=== PATIENT | male | born 1955 | race Caucasian/White ===

== ENCOUNTER 2019-08-18 10:10 | Emergency (ER) | payer BC ==
--- OUTSIDE RECORDS SUMMARY | 2019-08-18 10:17 | XMS REPORT | Summary of Care ---
:1955 Author Organization [facility] Address [address] [place] [address] Care Team Providers Name Role Phone Pura Arreola MD Primary Care Provider Reason for Visit Reason Comments Follow-up anitphospholipid antibody positive Encounter Details Date Type Department Care Team Description 07/26/2019 Office Visit Jac Farfan MD Antiphospholipid antibody positive (Primary Dx); Rheumatology and [address] Raynaud's phenomenon without gangrene; [facility] Chronic bilateral low back pain without sciatica; [place] [address] Spinal stenosis of lumbar region without neurogenic claudication; [address] [phone] History of lung cancer [address] [place] [address] Allergies Active Allergy Reactions Severity Noted Date Comments Duloxetine Hcl 12/13/2011 Nose bleeds Penicillins Shortness Of Breath High 12/13/2011 Chest tightness Sulfa Antibiotics Nausea And Vomiting 12/13/2011 Adhesive Tape Rash Low 07/31/2018 documented as of this encounter (statuses as of 08/04/2019) Medications Medication Sig Dispensed Refills Start End Status Date Date simvastatin (ZOCOR) 40 Take 40 mg by 0 Active MG tablet mouth nightly. esomeprazole (NEXIUM) Take 40 mg by 0 Active 40 MG capsule mouth every morning before breakfast. calcium-vitamin D Take 1 tablet 0 Active (OSCAL-500) 500-200 by mouth 2 MG-UNIT per tablet (two) times daily. desoximetasone Apply 0.25 % 0 Active (TOPICORT) 0.25 % topically as cream needed. losartan (COZAAR) 100 Take 100 mg 0 Active MG tablet by mouth daily. nitroGLYCERIN Place 0.4 mg 0 Active (NITROSTAT) 0.4 MG SL under the tablet tongue every 5 (five) minutes as needed for Chest pain. metoprolol (LOPRESSOR) Take 25 mg by 0 Active 25 MG tablet mouth daily. aspirin 81 MG tablet Take 81 mg by 0 Active mouth daily celecoxib (CELEBREX) 0 Active 200 MG capsule 8 benzonatate (TESSALON) 3 Active 200 MG capsule 9 tamsulosin (FLOMAX) TAKE 1 1 Active 0.4 MG capsule CAPSULE BY 9 MOUTH IN THE EVENING 1 2 HOUR AFTER MEAL Isosorbide Mononitrate Take 1 tablet 90 tablet 1 Active ER 60 MG Oral Tablet by mouth 0 Extended Release 24 daily Hour (IMDUR)Indications: Antiphospholipid antibody positive Hydroxychloroquine Take 1 tablet 180 tablet 1 Active Sulfate 200 MG Oral by mouth Two 0 Tablet Times Daily (PLAQUENIL)Indications : Antiphospholipid antibody positive isosorbide mononitrate Take 1 tablet 90 tablet 1 Discontinued (IMDUR) 60 MG 24 hr by mouth 9 020 (Reorder) tabletIndications: daily Antiphospholipid antibody positive Hydroxychloroquine TAKE 1 TABLET 180 tablet 1 Discontinued Sulfate 200 MG Oral TWICE A DAY 9 020 (Reorder) Tablet (PLAQUENIL)Indications : Antiphospholipid antibody positive documented as of this encounter (statuses as of 08/04/2019) Active Problems Problem Noted Date History of lung cancer 05/07/2018 Spinal stenosis of lumbar region 09/21/2016 Overview: Status post lumbar fusion L2-3 per patient Lung cancer 09/21/2016 Raynaud phenomenon 12/13/2011 Antiphospholipid antibody positive 12/13/2011 Hypertension 12/13/2011 Low back pain 12/13/2011 documented as of this encounter (statuses as of 08/04/2019) Social History Tobacco Use Types Packs/Day Years Used Date Never Smoker Smokeless Tobacco: Never Used Alcohol Use Drinks/Week oz/Week Comments Yes occasional Sex Assigned at Date Recorded Not on file Job Start Date Occupation Industry Not on file Not on file Not on file Travel History Travel Start Travel End No recent travel history available. documented as of this encounter Last Filed Vital Signs Vital Sign Reading Time Taken Comments Blood Pressure 137/70 07/26/2019 12:18 PM EST Pulse 48 07/26/2019 12:18 PM EST Temperature 35.7 07/26/2019 12:18 PM EST C (96.3 F) Respiratory Rate - - Oxygen Saturation 98% 07/26/2019 12:18 PM EST Inhaled Oxygen Concentration - - Weight 85.1 kg (187 lb 9.6 oz) 07/26/2019 12:18 PM EST Height 172.7 cm (5' 7.99") 07/26/2019 12:18 PM EST Body Mass Index 28.53 07/26/2019 12:18 PM EST documented in this encounter Patient Instructions Patient InstructionsLeanna Knight NP - 07/26/2019 12:30 PM ESTReturn in 6 months for follow up with Dr. Randi Marrero refill of Imdur will be sent to your pharmacy Continue aspirin 81 mg daily, Plaquenil 200 mg twice daily and Imdur 60 mg daily documented in this encounter Progress Notes Leanna Knight NP - 07/26/2019 12:30 PM EST REASON FOR VISIT: Followup for antiphospholipid antibody syndrome, Raynaud phenomenon HISTORY OF PRESENT ILLNESS: Marcell Martins is a 63 y.o. male who is followed in our office for followup visit. 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 Patient also has a history of lung cancer,which was detected early and it has been stable after the surgical resection. He has chronic low back pain with history of surgery. INTERVAL HISTORY: The patient is seen today in follow-up. His last visit was . He continues on aspirin 81 mg daily, hydroxychloroquine 200 mg po bid . He has eye exams every 6 months. Hisnext exam is scheduled for 08/15/[address] Johnson. He continues with chronic low back pain. He uses CPAP for sleep apnea. He reports cold hands. He denies any recent infections. He is generally feeling well. He reports cold hands. 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 He is following with a urologist in [place] for weak bladder. He also continues to follow with his vertica architect for coronary artery disease and hypertension. Past Medical History: Diagnosis Date Arthritis Benign prostatic hypertrophy Coronary artery disease GERD (gastroesophageal reflux disease) Hypersomnia with sleep apnea, unspecified Hypertension Low back pain Other and unspecified hyperlipidemia Other diseases of lung, not elsewhere classified Raynaud disease Shingles 2010 Spinal stenosis Vitamin D deficiency Past Surgical History: Procedure Laterality Date APPENDECTOMY 2009 CARPAL TUNNEL RELEASE Bilateral Dr Ospina CHOLECYSTECTOMY 2004 COLONOSCOPY 2010 CORONARY ANGIOPLASTY WITH STENT PLACEMENT 3 tents SPINE SURGERY 2005, 10/2011 spinal fusion SPINE SURGERY 07/2016 lumbar VASECTOMY 1982 Current Outpatient Medications on File Prior to Visit Medication Sig Dispense Refill aspirin 81 MG tablet Take 81 mg by mouth daily benzonatate (TESSALON) 200 MG capsule 3 desoximetasone (TOPICORT) 0.25 % cream Apply 0.25 % topically as needed. esomeprazole (NEXIUM) 40 MG capsule Take 40 mg by mouth every morning before breakfast. losartan (COZAAR) 100 MG tablet Take 100 mg by mouth daily. metoprolol (LOPRESSOR) 25 MG tablet Take 25 mg by mouth daily. nitroGLYCERIN (NITROSTAT) 0.[address] 0.4 mg under the tongue every 5 (five) minutes as needed for Chest pain. simvastatin (ZOCOR) 40 MG tablet Take 40 mg by mouth nightly. tamsulosin (FLOMAX) 0.4 MG capsule TAKE 1 CAPSULE BY MOUTH IN THE EVENING 1 2 HOUR AFTER MEAL 1 calcium-vitamin D (OSCAL-500) 500-200 MG-UNIT per tablet Take 1 tablet by mouth 2 (two) timesdaily. celecoxib (CELEBREX) 200 MG capsule Allergies Allergen Reactions Penicillins Shortness Of Breath Chest tightness Cymbalta [Duloxetine Hcl] Nose bleeds Sulfa Antibiotics Nausea And Vomiting Tape [Adhesive Tape] Rash Review of Systems Constitutional: Denies fever, chills or night sweats; Generally feeling well. HENT: Negative. Eyes: Follows with eye doctor q 6 months. Respiratory: Sleep apnea; CPAP Cardiovascular: Follows with vertica architect Gastrointestinal: Negative. Genitourinary: Followed by urology for weak bladder Musculoskeletal: Chronic low back pain Skin: Negative. Neurological: Radiculopathy related to chronic low back pain Endo/Heme/Allergies: Negative. Psychiatric/Behavioral: Negative. Visit Vitals BP 137/70 Pulse (!) 48 Temp 35.7 C (96.3 F) (Tympanic) Ht 1.727 m (5' 7.99") Wt 85.1 kg (187 lb 9.6 oz) SpO2 98% BMI 28.53 kg/m Physical Exam Constitutional: He is oriented to person, place, and time and well-developed, well-nourished, and inno distress. HENT: Head: Normocephalic and atraumatic. Eyes: Conjunctivae are normal. Right eye exhibits no discharge. Left eye exhibits no discharge. No scleral icterus. Neck: Neck supple. No JVD present. No tracheal deviation present. No thyromegaly present. Cardiovascular: Regular rhythm. [place], rate 48 Pulmonary/Chest: Effort normal and breath sounds normal. Abdominal: Soft. There is no abdominal tenderness. Musculoskeletal: General: No edema. Comments: Cold hands, no swelling or tenderness. Lymphadenopathy: He has no cervical adenopathy. Neurological: He is alert and oriented to person, place, and time. Gait normal. Psychiatric: Mood, memory, affect and judgment normal. LABORATORY DATA: Labs are reviewed. Office Visit on 07/26/2019 Component Date Value Ref Range Status Albumin 07/26/2019 4.4 3.5 - 5.2 g/dL Final Bilirubin, Total 07/26/2019 0.9 <1.2 mg/dL Final Calcium 07/26/2019 8.9 8.8 - 10.2 mg/dL Final Chloride 07/26/2019 106 98 - 107 mmol/L Final Creatinine 07/26/2019 1.28* 0.70 - 1.20 mg/dL Final Glucose 07/26/2019 98 70 - 140 mg/dL Final Alkaline Phosphatase 07/26/2019 61 40 - 129 U/L Final Potassium 07/26/2019 4.7 3.4 - 5.1 mmol/L Final Total Protein 07/26/2019 6.5 6.4 - 8.3 g/dL Final Sodium 07/26/2019 145 136 - 145 mmol/L Final AST/SGO 07/26/2019 29 <40 U/L Final Blood Urea Nitrogen 07/26/2019 9 8 - 23 mg/dL Final Osmolality, Gil 07/26/2019 298 275 - 300 mosm/kg Final BUN/Cre Ratio 07/26/2019 7 Final Bicarbonate 07/26/2019 25 22 - 29 mmol/L Final ALT/SGP 07/26/2019 31 <41 U/L Final Anion Gap 07/26/2019 14 8 - 15 mmol/L Final A/G Ratio 07/26/2019 2.1 Final GFR Non 2008 CDK-* 07/26/2019 57* >60 mL/min/1.73m2 Final GFR 2008 CKD-EPI 07/26/2019 66 >60 mL/min/1.73m2 Final Homogeneous Pattern 07/26/2019 <80 <80 / Final Speckled Pattern 07/26/2019 <80 <80 1/dil Final Peripheral Pattern 07/26/2019 <80 <80 1/dil Final KARLA,Nucleolar pattern 07/26/2019 <80 <80 / Final Sed Rate - ESR 07/26/2019 5 <20 mm/hr Final White Blood Cell 07/26/2019 5.8 4 - 10 10*3/uL Final Red Blood Cell 07/26/2019 4.34* 4.6 - 6.1 10*6/uL Final Hemoglobin 07/26/2019 13.7 13.5 - 18 g/dL Final Hematocrit 07/26/2019 40.2* 41 - 53 % Final Mean Cell Volume 07/26/2019 92.7 80 - 96 fL Final Mean Cell Hemoglobin 07/26/2019 31.5 27 - 33 pg Final Mean Cell Hgb Conc 07/26/2019 34.0 32.0 - 36.0 g/dL Final Red Cell Dist Width 07/26/2019 13.5 11.5 - 14.5 % Final Platelet Count 07/26/2019 215 150 - 400 10*3/uL Final Differential Type 07/26/2019 Automated Diff Final Neutrophil 07/26/2019 59 % Final Lymphocyte 07/26/2019 32 % Final Monocyte 07/26/2019 7 % Final Eosinophil 07/26/2019 2 % Final Basophil 07/26/2019 0 % Final Abs Neutrophil 07/26/2019 3.40 1.8 - 7.0 10*3/uL Final Abs Lymphocyte 07/26/2019 1.80 1.2 - 4.0 10*3/uL Final Abs Monocyte 07/26/2019 0.40 0 - 0.8 10*3/uL Final Abs Eosinophil 07/26/2019 0.10 0 - 0.5 10*3/uL Final Abs Basophil 07/26/2019 0.00 0 - 0.2 10*3/uL Final ASSESSMENT AND RECOMMENDATIONS: 1. Antiphospholipid antibody positive 2. Raynaud's phenomenon without gangrene Marcell was seen today for follow-up. He is clinically stable. Labs ordered today remain stable; KARLA is negative and ESR is 5. Will continue with current medications including hydroxychloroquine 200mg bid, Aspirin 81 mg daily and isosorbide 60 mg daily. He will return in 6 months and follow with his eye doctor and other providers as scheduled. Diagnoses and all orders for this visit: Antiphospholipid antibody positive Raynaud's phenomenon without gangrene - Isosorbide Mononitrate ER 60 MG Oral Tablet Extended Release 24 Hour ( IMDUR); Take 1 tablet bymouth daily - Hydroxychloroquine Sulfate 200 MG Oral Tablet (PLAQUENIL); Take 1 tablet by mouth Two Times Daily - Comprehensive Metabolic Panel - KARLA - Sedimentation rate, automated - CBC and differential The patient agrees with the above plan. The patient was discussed with and seen by Dr. Jac Bryan Certain parts of this note may have been carried over from prior Rheumatology and [facility] notes to maintain accuracy of patient's pertinent medical history and continuity of care. The details were verified and edited as appropriate. Attending Note: I saw and evaluated the patient with the physician electronic calibration technician. I have reviewed the notes, assessments, and/or procedures performed by [employer], Leanna Knight. I concur with her documentation of the patient. I reviewed the labs from this visit. Results for orders placed or performed in visit on 07/26/19 Comprehensive Metabolic Panel Result Value Ref Range Albumin 4.4 3.5 - 5.2 g/dL Bilirubin, Total 0.9 <1.2 mg/dL Calcium 8.9 8.8 - 10.2 mg/dL Chloride 106 98 - 107 mmol/L Creatinine 1.28 (H) 0.70 - 1.20 mg/dL Glucose 98 70 - 140 mg/dL Alkaline Phosphatase 61 40 - 129 U/L Potassium 4.7 3.4 - 5.1 mmol/L Total Protein 6.5 6.4 - 8.3 g/dL Sodium 145 136 - 145 mmol/L AST/SGO 29 <40 U/L Blood Urea Nitrogen 9 8 - 23 mg/dL Osmolality, Gil 298 275 - 300 mosm/kg BUN/Cre Ratio 7 Bicarbonate 25 22 - 29 mmol/L ALT/SGP 31 <41 U/L Anion Gap 14 8 - 15 mmol/L A/G Ratio 2.1 GFR Non 2008 CDK-EPI 57 (L) >60 mL/min/1.73m2 GFR 2008 CKD-EPI 66 >60 mL/min/1.73m2 KARLA Result Value Ref Range Homogeneous Pattern <80 <80 / Speckled Pattern <80 <80 1/dil Peripheral Pattern <80 <80 1/dil KARLA,Nucleolar pattern <80 <80 / Sedimentation rate, automated Result Value Ref Range Sed Rate - ESR 5 <20 mm/hr CBC and differential Result Value Ref Range White Blood Cell 5.8 4 - 10 10*3/uL Red Blood Cell 4.34 (L) 4.6 - 6.1 10*6/uL Hemoglobin 13.7 13.5 - 18 g/dL Hematocrit 40.2 (L) 41 - 53 % Mean Cell Volume 92.7 80 - 96 fL Mean Cell Hemoglobin 31.5 27 - 33 pg Mean Cell Hgb Conc 34.0 32.0 - 36.0 g/dL Red Cell Dist Width 13.5 11.5 - 14.5 % Platelet Count 215 150 - 400 10*3/uL Differential Type Automated Diff Neutrophil 59 % Lymphocyte 32 % Monocyte 7 % Eosinophil 2 % Basophil 0 % Abs Neutrophil 3.40 1.8 - 7.0 10*3/uL Abs Lymphocyte 1.80 1.2 - 4.0 10*3/uL Abs Monocyte 0.40 0 - 0.8 10*3/uL Abs Eosinophil 0.10 0 - 0.5 10*3/uL Abs Basophil 0.00 0 - 0.2 10*3/uL Mild creatinine elevation documented in this encounter Plan of Treatment Date Type Specialty Care Team Description 08/06/2019 Office Visit Pain Medicine 01/24/2020 Office Visit Rheumatology Jac Bryan MD [address] [place] [phone] Health Maintenance Due Date Last Done Comments Hepatitis C Screening (B. 1955 [id number]) Colon Cancer Screening 10 yrs 01/01/2004 DTaP,Tdap,and Td Vaccines (2 09/14/2012 08/17/2012 - Td) MMR Vaccines (1 of 1 - 04/27/2016 Standard series) Varicella Vaccines (1 of 2 - 07/28/2018 06/02/2018, 2-dose childhood series) 03/30/2016 Zoster Vaccines (3 of 3) 07/28/2018 06/02/2018, 03/30/2016 Pneumococcal Vaccine: 65+ 2018 Years (1 of 2 - PCV13) Influenza Vaccine 03/26/2019 HIB Vaccines Aged Out No longer eligible based on patient's age to complete this topic Hepatitis A Vaccines Aged Out No longer eligible based on patient's age to complete this topic Hepatitis B Vaccines Aged Out No longer eligible based on patient's age to complete this topic IPV Vaccines Aged Out No longer eligible based on patient's age to complete this topic Pneumococcal Vaccine: Aged Out No longer eligible based Pediatrics (0 to 5 Years) and on patient's age to At-Risk Patients (6 to 64 complete this topic Years) documented as of this encounter Procedures Procedure Name Priority Date/Time Associated Diagnosis Comments SEDIMENTATION RATE, Routine 07/26/2019 1:02 Antiphospholipid Results for this AUTOMATED PM EST antibody positive procedure are in Raynaud's phenomenon the results without gangrene section. CBC AND DIFFERENTIAL STAT 07/26/2019 1:02 Antiphospholipid Results for this PM EST antibody positive procedure are in Raynaud's phenomenon the results without gangrene section. KARLA Routine 07/26/2019 1:02 Antiphospholipid Results for this PM EST antibody positive procedure are in Raynaud's phenomenon the results without gangrene section. COMPREHENSIVE Routine 07/26/2019 1:02 Antiphospholipid Results for this METABOLIC PANEL PM EST antibody positive procedure are in Raynaud's phenomenon the results without gangrene section. documented in this encounter Results Comprehensive Metabolic Panel (07/26/2019 1:02 PM EST) Pathologist [facility] Albumin 4.4 3.5 - 5.2 g/dL [facility] Bilirubin, Total 0.9 <1.2 mg/dL [facility] Calcium 8.9 8.8 - 10.2 [facility] mg/dL [facility] Chloride 106 98 - 107 mmol/L [facility] Creatinine 1.28 (H) 0.70 - 1.20 [facility] mg/dL [facility] Glucose 98 70 - 140 mg/dL [facility] Alkaline Phosphatase 61 40 - 129 U/L [facility] Potassium 4.7 3.4 - 5.1 [facility] mmol/L [facility] Total Protein 6.5 6.4 - 8.3 g/dL [facility] Sodium 145 136 - 145 [facility] mmol/L [facility] AST/SGO 29 <40 U/L [facility] Blood Urea Nitrogen 9 8 - 23 mg/dL [facility] Osmolality, Gil 298 275 - 300 [facility] mosm/kg [facility] BUN/Cre Ratio 7 [facility] Bicarbonate 25 22 - 29 mmol/L [facility] ALT/SGP 31 <41 U/L [facility] Anion Gap 14 8 - 15 mmol/L [facility] A/G Ratio 2.1 [facility] GFR Non 57 (L) >60 [facility] Cameroonian 2009 CDK-EPI mL/min/1.73m2 [facility] GFR 66 >60 [facility] 2009 CKD-EPI mL/min/1.73m2 [facility] Pathology Specimen Plasma Performing Organization Address City/State/Zipcode Phone Number [facility] [address] [place] [address] [phone] [facility] [address] [place] [address] Pathology KARLA (07/26/2019 1:02 PM EST) Pathologist [facility] Homogeneous Pattern <80 <80 /{dilution} [facility] Speckled Pattern <80 <80 1/dil [facility] Peripheral Pattern <80 <80 1/dil [facility] KARLA,Nucleolar pattern <80 <80 /{dilution} [facility] Specimen Serum Performing Organization Address [facility] Phone Number [facility] [address] [place] [address] [facility] [address] [place] [address] Pathology Sedimentation rate, automated (07/26/2019 1:02 PM EST) Pathologist [facility] Sed Rate - ESR 5 <20 mm/hr [facility] Pathology Specimen EDTA Whole Blood Performing Organization Address [facility] Phone Number [facility] [address] [place] [address] [phone] [address] Pathology CBC and differential (07/26/2019 1:02 PM EST) [facility] White Blood Cell 5.8 4 - 10 [place] 10*3/uL Pathology Laboratory Red Blood Cell 4.34 (L) 4.6 - 6.1 [place] 10*6/uL Pathology Laboratory Hemoglobin 13.7 13.5 - 18 [facility] g/dL Pathology Laboratory Hematocrit 40.2 (L) 41 - 53 % [place] [facility] Mean Cell Volume 92.7 80 - 96 fL [place] [facility] Mean Cell Hemoglobin 31.5 27 - 33 pg [place] [facility] Mean Cell Hgb Conc 34.0 32.0 - 36.0 [place] g/dL Pathology Laboratory Red Cell Dist Width 13.5 11.5 - 14.5 % [place] [facility] Platelet Count 215 150 - 400 [place] 10*3/uL Pathology Laboratory Differential Type Automated Diff [place] [facility] Neutrophil 59 % [place] [facility] Lymphocyte 32 % [place] [facility] Monocyte 7 % [place] [facility] Eosinophil 2 % [place] [facility] Basophil 0 % [place] [facility] Abs Neutrophil 3.40 1.8 - 7.0 [place] 10*3/uL Pathology Laboratory Abs Lymphocyte 1.80 1.2 - 4.0 [place] 10*3/uL Pathology Laboratory Abs Monocyte 0.40 0 - 0.8 [place] 10*3/uL Pathology Laboratory Abs Eosinophil 0.10 0 - 0.5 [place] 10*3/uL Pathology Laboratory Abs Basophil 0.00 0 - 0.2 [place] 10*3/uL Pathology Laboratory Specimen EDTA Whole Blood Performing Organization Address City/State/Zipcode Phone Number [facility] [address] [place] [address] [address] [place], [address] [place] [facility] [address] [place] [address] Laboratory 402 documented in this encounter Visit Diagnoses Diagnosis Antiphospholipid antibody positive - Primary Other and unspecified nonspecific immunological findings Raynaud's phenomenon without gangrene Chronic bilateral low back pain without sciatica Spinal stenosis of lumbar region without neurogenic claudication Spinal stenosis, lumbar region, without neurogenic claudication History of lung cancer Personal history of malignant neoplasm of bronchus and lung documented in this encounter
--- OUTSIDE RECORDS SUMMARY | 2019-08-18 10:17 | XMS REPORT | Summary of Care ---
:1955 Author Organization [facility] Address [address] [place] [address] Care Team Providers Name Role Phone Pura Arreola MD Primary Care Provider Reason for Referral Pain Medicine (Routine) Status Reason Specialty Diagnoses / Referred By Referred To Procedures Contact Contact Pending Insurance Pain Medicine Diagnoses Other chronic pain Ofelia, Alana Wilkins MD [address] [place] [address] Email: [email or web address] Scheduling Instructions Get Authorization for orders: Yes No Make Appointment for procedure: Yes No Reason for Visit Reason Comments Back Pain low back Leg Pain left leg Encounter Details Date Type Department Care Team Description 08/06/2019 Office Visit Radha Soto Other chronic pain Pain Medicine at [facility] MD Franco (Primary Dx) and [facility] [place] [address] [address] [place], [place] [phone] Allergies Active Allergy Reactions Severity Noted Date Comments Duloxetine Hcl 12/13/2011 Nose bleeds Penicillins Shortness Of Breath High 12/13/2011 Chest tightness Sulfa Antibiotics Nausea And Vomiting 12/13/2011 Adhesive Tape Rash Low 07/31/2018 documented as of this encounter (statuses as of 08/08/2019) Medications Medication Sig Dispensed Refills Start Date End Date Status simvastatin (ZOCOR) 40 Take 40 mg by 0 Active MG tablet mouth nightly. esomeprazole (NEXIUM) 40 Take 40 mg by 0 Active MG capsule mouth every morning before breakfast. calcium-vitamin D Take 1 tablet 0 Active (OSCAL-500) 500-200 by mouth 2 MG-UNIT per tablet (two) times daily. desoximetasone Apply 0.25 % 0 Active (TOPICORT) 0.25 % cream topically as needed. losartan (COZAAR) 100 MG Take 100 mg by 0 Active tablet mouth daily. nitroGLYCERIN Place 0.4 mg 0 Active (NITROSTAT) 0.4 MG SL under the tablet tongue every 5 (five) minutes as needed for Chest pain. metoprolol (LOPRESSOR) Take 25 mg by 0 Active 25 MG tablet mouth daily. aspirin 81 MG tablet Take 81 mg by 0 Active mouth daily celecoxib (CELEBREX) 200 0 03/06/2018 Active MG capsule benzonatate (TESSALON) 3 09/13/2018 Active 200 MG capsule tamsulosin (FLOMAX) 0.4 TAKE 1 CAPSULE 1 01/02/2019 Active MG capsule BY MOUTH IN THE EVENING 1 2 HOUR AFTER MEAL Isosorbide Mononitrate Take 1 tablet 90 tablet 1 07/26/2019 Active ER 60 MG Oral Tablet by mouth daily Extended Release 24 Hour (IMDUR)Indications: Antiphospholipid antibody positive Hydroxychloroquine Take 1 tablet 180 tablet 1 07/26/2019 Active Sulfate 200 MG Oral by mouth Two Tablet Times Daily (PLAQUENIL)Indications: Antiphospholipid antibody positive documented as of this encounter (statuses as of 08/08/2019) Active Problems Problem Noted Date History of lung cancer 05/07/2018 Spinal stenosis of lumbar region 09/21/2016 Overview: Status post lumbar fusion L2-3 per patient Lung cancer 09/21/2016 Raynaud phenomenon 12/13/2011 Antiphospholipid antibody positive 12/13/2011 Hypertension 12/13/2011 Low back pain 12/13/2011 documented as of this encounter (statuses as of 08/08/2019) Social History Tobacco Use Types Packs/Day Years [...] Sign Reading Time Taken Comments Blood Pressure 161/76 08/06/2019 3:00 PM EST Pulse 59 08/06/2019 3:00 PM EST Temperature - - Respiratory Rate - - Oxygen Saturation - - Inhaled Oxygen Concentration - - Weight 84.8 kg (187 lb) 08/06/2019 3:00 PM EST Height 172.7 cm (5' 7.99") 08/06/2019 3:00 PM EST Body Mass Index 28.44 08/06/2019 3:00 PM EST documented in this encounter Progress Notes Franky Gilbert MD - 08/06/2019 3:00 PM EST Subjective: Patient ID: Marcell Martins is a 63 y.o. male. 63y/o M with history of L2-S1 laminectomy and fusion presents with low back pain with radicular symptoms going down the posterior thighs to his toes- left more than right. Pt s/p BL L4-5-ala MBB June 2018 without any relief in his back pain. Pt continues to have back pain with radicular symptoms. He is not interested in any SCS. He still has control over his bowel andbladder. Current Outpatient Medications on File Prior to Visit Medication Sig Dispense Refill aspirin 81 MG tablet Take 81 mg by mouth daily benzonatate (TESSALON) 200 MG capsule 3 calcium-vitamin D (OSCAL-500) 500-200 MG-UNIT per tablet Take 1 tablet by mouth 2 (two) timesdaily. celecoxib (CELEBREX) 200 MG capsule desoximetasone (TOPICORT) 0.25 % cream Apply 0.25 % topically as needed. esomeprazole (NEXIUM) 40 MG capsule Take 40 mg by mouth every morning before breakfast. Hydroxychloroquine Sulfate 200 MG Oral Tablet (PLAQUENIL) Take 1 tablet by mouth Two Times Daily 180 tablet 1 Isosorbide Mononitrate ER 60 MG Oral Tablet Extended Release 24 Hour ( IMDUR) Take 1 tablet bymouth daily 90 tablet 1 losartan (COZAAR) 100 MG tablet Take 100 [...] EVENING 1 2 HOUR AFTER MEAL 1 No current facility-administered medications on file prior to visit. Marcell is allergic to penicillins; cymbalta [duloxetine hcl]; sulfa antibiotics ; and tape [adhesive tape]. Review of Systems Constitutional: Positive for activity change. HENT: Negative for voice change. Eyes: Negative for visual disturbance. Respiratory: Negative for chest tightness and shortness of breath. Cardiovascular: Negative for chest pain. Gastrointestinal: Negative for abdominal pain. Genitourinary: Negative for difficulty urinating. Musculoskeletal: Positive for back pain and gait problem. Skin: Negative for rash. Neurological: Positive for weakness and numbness. Negative for dizziness, seizures and speech difficulty. Psychiatric/Behavioral: Negative for confusion. Objective: Physical Exam Vitals signs and nursing note reviewed. Constitutional: Appearance: He is well-developed. HENT: Head: Normocephalic and atraumatic. Eyes: Pupils: Pupils are equal, round, and reactive to light. Neck: Musculoskeletal: Normal range of motion. Cardiovascular: Rate and Rhythm: Normal rate. Pulmonary: Effort: Pulmonary effort is normal. Abdominal: Palpations: Abdomen is soft. Musculoskeletal: Lumbar back: He exhibits decreased range of motion, tenderness, bony tenderness and pain. He exhibits no swelling, no laceration and no spasm. Back: Legs: Comments: Positive SLR Positive Lumbar Facet loading. Motor Right 4/5 Hip flexion, 5/5 knee extension, 5/5 knee flexion/ 5/5 hip abduction, 5/5 Hip adduction, 5/5 dorsiflexion, 5/5 plantar flexion Left 4/5 Hip flexion, 5/5 knee extension, 5/5 knee flexion/ 5/5 hip abduction, 5/ 5 Hip adduction, 5/5dorsiflexion, 5/5 plantar flexion Neurological: Mental Status: He is alert and oriented to person, place, and time. Assessment: 63yM with failed back syndrome - L2-L3 anterior fusion and L3-S1 posterior fusion with ongoing low back pain with radicular symptoms. He has had L1-2 BL TF LEXY, Caudal LEXY, and most recently BL L4-5-Ala MBB without any relief. Pt has L1-2 disc herniation causing spinal stenosis which may be related tohis pain. Plan: 1. Obtain auth for L1-2 lumbar interlaminar LEXY 2. follow up after injection Franky Gilbert M.D. PGY-3 Resident Physical Medicine and Rehabilitation I saw and evaluated the patient. Discussed with the resident and agree with the residents findings as documented in the resident's note. A follow-up plan is necessary at this time.Electronically signed by Radha Oliver MD at 2019 7:19 AM ESTdocumented in this encounter Plan of Treatment Date Type Specialty Care Team Description 01/24/2020 Office Visit Rheumatology Jac Bryan MD [address] [place] [address] [place] [address] [phone] Name Type Priority Associated Diagnoses Order Schedule Orders Outpatient Referral Routine Other chronic pain Ordered: 08/06/2019 Health Maintenance Due Date Last Done Comments Hepatitis C Screening (B. 1955 [id number]) Colon Cancer Screening 10 yrs 01/01/2004 DTaP,Tdap,and [...] topic Years) documented as of this encounter Results Not on filedocumented in this encounter Visit Diagnoses Diagnosis Other chronic pain - Primary documented in this encounter
[2019-08-18 10:24] VITALS: BP 132/72
--- NOTE | 2019-08-18 10:33 | UC ---
Complaint Male HPI - HPI Summary HPI Summary: 63 year old male presents with complaint of left groin pain that "comes and goes " over the past month. Notes some testicular pain. No tenderness nor swelling Pain is more severe in the morning and lessens as the day goes on. Denies dysuria nor hematuria. No change in bowel movements, is passing gas regularly. Denies melena nor hematochezia. - History of Current Complaint Chief Complaint: UCGU Stated Complaint: PELVIC PAIN Time Seen by Provider: 08/18/19 10:30 Hx Obtained From: Patient Onset/Duration: Gradual Onset, Lasting Weeks - 4 Pain Intensity: 4 Location: Groin - left Character: Sharp Associated Signs And Symptoms: Positive: Constipation - chronic. Negative: Diaphoresis, Back Pain, Fever, Hematuria, Dysuria, Blood in Stool, Rectal Pain, Appetite, Nausea, Vomiting(# Of Episodes =), Penile Discharge - Allergies/Home Medications Allergies/Adverse Reactions: Allergies Allergy/AdvReac Type Severity Reaction Status Date / Time Penicillins Allergy Severe Anaphylatic Verified 08/18/19 10:24 Shock Sulfa (Sulfonamide Allergy Intermediate nausea and Verified 08/18/19 10:24 Antibiotics) vomitting Home Medications: Home Medications Aspirin 81 mg CHEW TAB* 81 mg PO DAILY 08/18/19 [History Confirmed 08/18/19] DOXYcycline CAP(*) [DOXYcycline 100MG CAP(*)] 100 mg PO BID 10 Days #20 cap [Rx] Desoximetasone 0.25 gm TP SEE INSTRUCTIONS 08/18/19 [History Confirmed 08/18/19] Esomeprazole Magnesium [Nexium] 40 mg PO DAILY 08/18/19 [History Confirmed 08/18] Hydroxychloroquine TAB* [Plaquenil TAB*] 200 mg PO BID 08/18/19 [History Confirmed 08/18/19] Isosorbide Mononitrate ER TAB* [Imdur ER TAB*] 60 mg PO DAILY 08/18/19 [History Confirmed 08/18/19] Metoprolol Tartrate TAB* [Lopressor TAB*] 25 mg PO DAILY 08/18/19 [History Confirmed 08/18/19] Simvastatin 40 mg PO DAILY 08/18/19 [History Confirmed 08/18/19] PMH/Surg Hx/FS Hx/Imm Hx Previously Healthy: Yes Cardiovascular History: Cardiac Disease Respiratory History: Other - Left wege resection for prior lung cancer, follows with Thoracic surgeon. GI/ History: Gastroesophageal Reflux Cancer History: Lung Cancer - Surgical History Surgical History: Yes Surgery Procedure, Year, and Place: STENTS IN HEART 2004, SPINAL FUSION 2005 L5- S1 AND 2012 L3-S1, APPENDIX, TUMOR REMOVED FROM RIGHT LUNG 2012, GALLBLADDER 2003, BILATERAL CARPAL TUNNEL 2008 - Family History Known Family History: Positive: Non-Contributory - Social History Alcohol Use: None Substance Use Type: None Smoking Status (MU): Never Smoked Tobacco Review of Systems All Other Systems Reviewed And Are Negative: Yes Constitutional: Positive: Negative Skin: Positive: Negative Eyes: Positive: Negative ENT: Positive: Negative Respiratory: Positive: Negative Cardiovascular: Positive: Negative Gastrointestinal: Negative: Abdominal Pain, Vomiting, Diarrhea, Nausea Genitourinary: Negative: Dysuria, Hematuria, Frequency, Urgency, Vaginal/Penile Discharge, Vaginal/Penile Pain, Vaginal/Penile Tenderness Motor: Positive: Negative Neurovascular: Positive: Negative Musculoskeletal: Positive: Negative Neurological/Mental Status: Positive: Negative Psychological: Positive: Negative Is Patient Immunocompromised?: No Physical Exam Triage Information Reviewed: Yes Appearance: Well-Appearing, No Pain Distress, Well-Nourished Vital Signs: Initial Vital Signs Temp 98.4 F 08/18/19 10:19 Pulse 55 08/18/19 10:19 Resp 16 08/18/19 10:19 BP 132/72 08/18/19 10:19 Pulse Ox 100 08/18/19 10:19 Eye Exam: Normal ENT Exam: Normal Neck: Positive: Supple, Nontender, No Lymphadenopathy Respiratory: Positive: Lungs clear, Normal breath sounds. Negative: Crackles, Rhonchi, Wheezing Cardiovascular: Positive: RRR, No Murmur, Pulses Normal Abdomen Description: Positive: Nontender, Soft. Negative: CVA Tenderness (R), CVA Tenderness (L), Distended, Guarding, Hernia @, McBurney's Point Tenderness, Peritoneal Signs, Pulsatile Mass Bowel Sounds: Positive: Present Male Genital Exam: Positive: Normal Genitalia, No Hernia, Epididymal Tenderness - left. Negative: Erythema, Hernia Mass, Inguinal Tenderness, Scrotum Tenderness (R), Scrotum Tenderness (L), Testicular Tenderness (R), Testicular Tenderness (L), Urethral Discharge Musculoskeletal Exam: Normal Neurological Exam: Normal Psychological Exam: Normal Skin Exam: Normal Complaint Male Course/Dx - Differential Dx/Diagnosis Differential Diagnosis/HQI/PQRI: Ureteral Calculi, Urinary Tract Infection, Other - Hernia Provider Diagnosis: Epididymitis, left Discharge ED - Sign-Out/Discharge Documenting (check all that apply): Patient Departure All imaging exams completed and their final reports reviewed: No Studies - Discharge Plan Condition: Stable Disposition: HOME Prescriptions: DOXYcycline CAP(*) [DOXYcycline 100MG CAP(*)] 100 mg PO BID 10 Days #20 cap Patient Education Materials: Epididymitis (ED) Referrals: Le Torres PA [Primary Care Provider] - Additional Instructions: Take antibiotics as prescribed, Tylenol as needed for pain. Ultrasound was not available at Urgent Care however, I do recommend following your your Primary Care Physician this week for consideration of scrotal ultrasound and re- evaluation of your symptoms. - Billing Disposition and Condition Condition: STABLE Disposition: Home
== END 2019-08-18 11:07 | disposition home or self-care (01) ==
LOC: UCCORT 10:10
DX: N45.1 Epididymitis (principal); K21.9 Gastro-esophageal reflux disease without esophagitis; Z85.118 Personal history of other malignant neoplasm of bronchus and lung; Z79.899 Other long term (current) drug therapy; Z88.0 Allergy status to penicillin; Z88.2 Allergy status to sulfonamides; Z79.82 Long term (current) use of aspirin; Z95.5 Presence of coronary angioplasty implant and graft
CPT/HCPCS: 81003; 99212; G0463